=== PATIENT | female | born 1940 | race Caucasian/White ===

== ENCOUNTER 2022-11-08 15:14 | Inpatient (IN) ==
[2022-11-08] MEDS ORDERED: XOPENEX 1.25 MG/3 ML NEBULE NEB ONE (18:17)
[2022-11-08] MEDS ORDERED: LEVAQUIN PREMIX IV 750 MG 750 MG/150 ML BAG IV SCH ×2 (18:19→19:00)
[2022-11-08] MEDS ORDERED: Atrovent NEB TX 0.02% NEB SCH (18:19)
[2022-11-08] MEDS ORDERED: PROVENTIL NEB TX 0.083% 2.5MG/ 3ML NEB SCH (18:19)
[2022-11-08] MEDS: XOPENEX 1.25 MG/3 ML NEBULE NEB SCH (18:20)
[2022-11-08] MEDS ORDERED: CATAPRES TAB 0.2 MG PO ONE (18:27)
[2022-11-08 18:40] VITALS: BMI 24.5
[2022-11-08] MEDS: ROBITUSSIN DM PO SCH ×2 (18:40→20:56)
[2022-11-08 18:58] LABS: BASOPHILS % (AUTO) 0.3 % (0.2-1.0); EOSINOPHILS # (AUTO) 0.1 x10^3/uL (0.0-0.2); EOSINOPHILS % (AUTO) 0.5 % (0.9-2.9); HEMATOCRIT 27.9 % (36.0-47.0); HEMOGLOBIN 9.6 g/dL (12.0-16.0); LYMPHOCYTES # (AUTO) 1.9 X10^3/uL (1.3-2.9); LYMPHOCYTES % (AUTO) 16.4 % (21.0-51.0); MEAN CORPUSCULAR HEMOGLOBIN 30.2 pg (27.0-34.0); MEAN CORPUSCULAR HGB CONC 34.5 g/dL (33.0-35.0); MEAN CORPUSCULAR VOLUME 87.7 fL (80.0-100.0); MEAN PLATELET VOLUME 9.1 fL (7.4-11.0); MONOCYTES # (AUTO) 0.8 x10^3/uL (0.3-0.8); MONOCYTES % (AUTO) 7.3 % (0.0-13.0); NEUTROPHILS # (AUTO) 8.7 x10^3/uL (2.2-4.8); NEUTROPHILS % (AUTO) 75.5 % (42.0-75.0); PLATELET COUNT 328 X10^3/uL (150.0-450.0); RED BLOOD COUNT 3.18 X10^6/uL (3.5-5.4); RED CELL DISTRIBUTION WIDTH 13.5 % (11.6-16.5); WHITE BLOOD COUNT 11.5 X10^3/uL (3.6-10.0)
[2022-11-08] MEDS ORDERED: NS 1/2 1,000 ML IV 1,000 ML IV ONE (19:00)
[2022-11-08 19:10] LABS: ALANINE AMINOTRANSFERASE 43 Units/L (12-78); ALBUMIN 3.9 g/dL (3.4-5.0); ALKALINE PHOSPHATASE 35 Units/L (46-116); ASPARTATE AMINO TRANSFERASE 34 Units/L (15-37); BLOOD UREA NITROGEN 33 mg/dL (7-18); CALCIUM 9.9 mg/dL (8.5-10.1); CARBON DIOXIDE 25.1 mmol/L (21-32); CHLORIDE 105 mmol/L (98-107); COR NA(FOR HYPERGLY) 142 mmol/L (136-145); CREATININE 1.71 mg/dL (0.55-1.02); GLUCOSE 186 mg/dL (65-99); POTASSIUM 3.4 mmol/L (3.5-5.1); SODIUM 140 mmol/L (136-145); TOTAL PROTEIN 7.4 g/dL (6.4-8.2); eGFR NON BLACK RACES 30 (>60)
[2022-11-08] MEDS ORDERED: PULMICORT NEB TX 0.5 MG NEB ONE (19:11)
[2022-11-08] MEDS: NS 1/2 1,000 ML IV 1,000 ML IV SCH (19:23)
[2022-11-08] MEDS: TUSSIONEX PENNKINETIC SUSP PO PRN (19:23)
[2022-11-08] MEDS: PULMICORT NEB TX 0.5 MG NEB SCH (20:10)
[2022-11-08] MEDS ORDERED: MECLIZINE HCL 25 MG PO PRN (20:15)
[2022-11-08] MEDS ORDERED: ONDANSETRON HCL 4 MG PO PRN (20:15)
[2022-11-08] MEDS: NEURONTIN CAP 300 MG PO SCH (20:56)
[2022-11-08] MEDS ORDERED: ANTIVERT TAB 25 MG PO PRN (21:20)
--- NOTE | 2022-11-08 22:39 | RAD ---
HISTORYPneumoniaSTUDYCHEST, PA/LAT ADULTCOMPARISONNone availableTECHNIQUEPA and lateral projections, 2 imagesFINDINGSCardiac silhouette is normal in size and configuration.Pulmonary vascular sizes are normal.Lungs are hyperinflated.No effusion.No focal airspace disease.No pneumothorax.No acute osseous abnormalityIMPRESSION1. No imaging findings of acute cardiopulmonary disease.2. Lungs are hyperinflated; concerning for COPD.Electronically signed by: Derian Dumont (Nov 08, 2022 22:38:03)
[2022-11-09] MEDS: XOPENEX 1.25 MG/3 ML NEBULE NEB SCH ×5 (00:02→17:03)
[2022-11-09 05:11] LABS: HEMOGLOBIN 8.5 g/dL (12.0-16.0); MEAN PLATELET VOLUME 9.1 fL (7.4-11.0)
[2022-11-09 05:15] LABS: BASOPHILS % (AUTO) 0.5 % (0.2-1.0); EOSINOPHILS # (AUTO) 0.2 x10^3/uL (0.0-0.2); EOSINOPHILS % (AUTO) 1.5 % (0.9-2.9); HEMATOCRIT 24.6 % (36.0-47.0); LYMPHOCYTES # (AUTO) 2.2 X10^3/uL (1.3-2.9); LYMPHOCYTES % (AUTO) 20.8 % (21.0-51.0); MEAN CORPUSCULAR HEMOGLOBIN 30.5 pg (27.0-34.0); MEAN CORPUSCULAR HGB CONC 34.5 g/dL (33.0-35.0); MEAN CORPUSCULAR VOLUME 88.3 fL (80.0-100.0); MONOCYTES % (AUTO) 9.3 % (0.0-13.0); NEUTROPHILS # (AUTO) 7.1 x10^3/uL (2.2-4.8); NEUTROPHILS % (AUTO) 67.9 % (42.0-75.0); PLATELET COUNT 301 X10^3/uL (150.0-450.0); RED BLOOD COUNT 2.79 X10^6/uL (3.5-5.4); RED CELL DISTRIBUTION WIDTH 13.6 % (11.6-16.5); WHITE BLOOD COUNT 10.4 X10^3/uL (3.6-10.0)
[2022-11-09 05:25] LABS: ALANINE AMINOTRANSFERASE 35 Units/L (12-78); ALBUMIN 3.2 g/dL (3.4-5.0); ALKALINE PHOSPHATASE 30 Units/L (46-116); ASPARTATE AMINO TRANSFERASE 24 Units/L (15-37); BLOOD UREA NITROGEN 32 mg/dL (7-18); CALCIUM 9.3 mg/dL (8.5-10.1); CARBON DIOXIDE 26.2 mmol/L (21-32); CHLORIDE 107 mmol/L (98-107); COR CA(FOR HYPOALB) 9.9 mg/dL (8.5-10.1); CREATININE 1.66 mg/dL (0.55-1.02); GLUCOSE 96 mg/dL (65-99); MAGNESIUM 1.7 mg/dL (2.0-2.9); POTASSIUM 3.9 mmol/L (3.5-5.1); SODIUM 141 mmol/L (136-145); TOTAL PROTEIN 6.4 g/dL (6.4-8.2); eGFR NON BLACK RACES 31 (>60)
[2022-11-09] MEDS ORDERED: ONDANSETRON HCL 4 MG PO PRN (05:33)
[2022-11-09] MEDS ORDERED: ZOFRAN TAB 4 MG PO PRN (06:08)
[2022-11-09] MEDS: MAGNESIUM SULFATE 1 GRAM/100 mL PREMIX 1 G/100 ML BAG IV PRN ×2 (06:08→08:32)
--- NOTE | 2022-11-09 07:43 | RAD ---
HISTORYPneumonia, shortness of breathSTUDYChest AP [id number]/27/2023FINDINGSHeart is upper limits normal in size. Chantal are normal. Lung khan are clear. No pleural effusions are identified. Bony thorax is unremarkable.IMPRESSIONLungs clearElectronically signed by: GULSHAN NESBITT (Nov 09, 2022 07:41:21)
[2022-11-09] MEDS: PULMICORT NEB TX 0.5 MG NEB SCH ×3 (07:47→20:58)
[2022-11-09] MEDS ORDERED: TOPROL XL PO ONE (08:28)
[2022-11-09] MEDS: FLONASE NASAL SPRAY ENOSTRIL SCH (08:32)
[2022-11-09] MEDS: ROBITUSSIN DM PO SCH ×4 (08:33→21:11)
[2022-11-09] MEDS: SYNTHROID 50 mcg TAB PO SCH (08:33)
[2022-11-09] MEDS: ZESTORETIC 20/25 MG PO SCH (08:33)
[2022-11-09] MEDS: TOPROL XL PO SCH (08:33)
[2022-11-09] MEDS: PriLOSEC PO SCH (08:33)
[2022-11-09] MEDS: ASPIRIN EC 81 MG PO SCH (08:33)
[2022-11-09] MEDS: SINGULAIR TAB 10 MG PO SCH (08:33)
[2022-11-09] MEDS: NORVASC TAB 5 MG PO SCH (08:33)
[2022-11-09] MEDS ORDERED: LEVAQUIN PREMIX IV 750 MG 750 MG/150 ML BAG IV SCH (09:00)
[2022-11-09] MEDS ORDERED: TRICOR TAB 145 MG PO SCH (09:00)
[2022-11-09] MEDS: SOLU-Medrol 40 MG VIAL IVP SCH ×3 (10:44→21:12)
[2022-11-09] MEDS: TUSSIONEX PENNKINETIC SUSP PO PRN (12:05)
[2022-11-09] MEDS: TESSALON PERLES PO PRN (12:05)
[2022-11-09] MEDS: NS 1/2 1,000 ML IV 1,000 ML IV SCH ×2 (12:07→21:19)
[2022-11-09] MEDS ORDERED: NS 1/2 1,000 ML IV 1,000 ML IV ONE ×2 (12:07→19:25)
--- NOTE | 2022-11-09 13:31 | DR.H&P ---
H&P - History & Physical for Day of: H&P Date: 11/08/22 - Chief Complaint Chief Complaint: COUGH, SOB - History of Present Illness History of Present Illness: IS A 82 YEAR OLD PATIENT OF OURS. SHE WAS A DIRECT ADMISSION FOR TREATMENT OF BRONCHOPNEUMONIA. HER SYMPTOMS OF PRODUCTIVE COUGH AND SHORTNESS OF BREATH STARTED ABOUT A WEEK AGO. SHE HAS TAKEN A Z-PACK, TESSALON PERLES, AND PREDNISONE. SHE DENIES IMPROVEMENT IN SYMPTOMS DESPITE COMPLIANCE WITH MEDICATIONS. HER PMH INCLUDES: COPD, GERD, HTN, KIDNEY STONES, ARTHRITIS, HYPERTHYROIDISM, CHOLECYSTECTOMY, HYSTERECTOMY, TONSILLECTOMY. ON ADMISSION, HER VITALS WERE 98.3-71-16-99%-136/65. LABS WERE OBTAINED. WBC 11.5, RBC 3.18, HGB 9.6, HCT 27.9, SODIUM 140, POTASSIUM 3.4, CHLORIDE 105, BUN 33, CREATININE 1.71, GLUCOSE 186, CALCIUM 9.9, AST 34, ALT 43, ALK PHOS 35, TOTAL PROTEIN 7.4, ALBUMIN 3.9. A RESPIRATORY VIRAL PANEL WAS SET UP. BLOOD CULTURES WERE ALSO SET UP. A CHEST XRAY WAS OBTAINED AND REVEALED: 1. No imaging findings of acute cardiopulmonary disease.2. Lungs are hyperinflated; concerning for COPD. SHE WAS STARTED ON 1/2NS AT 75 ML/HR, LEVAQUIN 750MG IV Q48H, PULMICORT NEBS BID, XOPENEX NEBS Q6H, SOLU-MEDROL 80MG IV Q8H, TUSSIONEX 5ML Q12H PRN, ROBITUSSIN DM 10ML QID, AND HER HOME MEDICATIONS WERE RESUMED. HOME MEDS INCLUDE: NORVASC, ECOTRIN, TESSALON PERLES, NEURONTIN, SYNTHROID, ZESTORETIC, ANTIVERT, TOPROL XL, SINGULAIR, PRILOSEC, AND ZOFRAN. OTHERWISE, WE WILL FOLLOW- UP WITH AM LABS AND CHEST XRAY AND CONTINUE TO MONITOR. TIME SPENT ON CLINICAL ASSESSMENT, REVIWING LABS AND IMAGING, DECISION MAKING, AND DOCUMENTATION GREATER THAN 75 MINUTES. - Past Medical History Past Medical History: Arthritis, GERD, Hypertension, Hyperthyroidism, Kidney Stones - Past Surgical History Surgical History: Cholecystectomy, Hysterectomy, Ortho Surgery, Tonsillectomy - Family History Family Medical History: Coronary Artery Disease, Hypertension - Social History Does patient currently use any type of tobacco product: No Have you used tobacco products in the last 12 months: No Type of Tobacco Use: None Alcohol Use: None Drug Use: None - Medications Home Medications: Penicillins Allergy (Unknown, Verified 11/08/22 18:19) CONTINUE taking the following medications azithromycin 250 mg tablet 250 mg PO PER PKG DIR 11/08/22 [History] benzonatate 100 mg capsule 100 mg PO TID PRN Cough 11/08/22 [History] ergocalciferol (vitamin D2) 1,250 mcg (50,000 unit) capsule 1,250 mcg PO QWEEK 11/08/22 [History] fenofibrate nanocrystallized 145 mg tablet 145 mg PO QDAY 11/08/22 [History] fluticasone propionate 50 mcg/actuation nasal spray,suspension 2 spray intranasal QDAY 11/08/22 [History] gabapentin 300 mg capsule 300 mg PO HS 11/08/22 [History] levothyroxine 50 mcg tablet 50 mcg PO QDAY 11/08/22 [History] lisinopril 20 mg-hydrochlorothiazide 25 mg tablet 1 tab PO QDAY 11/08/22 [History] omeprazole 20 mg capsule,delayed release 20 mg PO QDAY 11/08/22 [History] prednisone 5 mg tablet 5 mg PO PER PKG DIR 11/08/22 [History] - Review of Systems Constitutional: Weakness Eyes: No Symptoms Reported ENT: No Symptoms Reported Respiratory: Cough, Shortness of Breath, SOB with Excertion Cardiovascular: No Symptoms Reported Gastrointestinal: No Symptoms Reported Genitourinary: No Symptoms Reported Musculoskeletal: No Symptoms Reported Skin: No Symptoms Reported Neurological: Weakness - Physical Exam Vital Signs: Temperature 98.3 F Pulse Rate 66 Respiratory Rate 15 Blood Pressure [Right Arm] 138/62 Blood Pressure 142/65 O2 Sat by Pulse Oximetry 93 Oriented: Normal Eyes: Normal Ear: Normal Nose: Normal Throat: Normal Respiratory: Diminished Throughout, Wheezes Throughout Cardiovascular: Normal : Normal Auscultation: Bowel Sounds: Normal Palpation: Normal Tenderness: Normal Skin: Normal Musculoskeletal: Normal Psychiatric: Normal Mood Description: Calm Affect: Normal Speech Pattern: Clear - Assessment/Plan (1) Bronchopneumonia Status: Acute Plan: ADMIT, SUPPLEMENTAL OXYGEN, 1/2NS AT 75 ML/HR, LEVAQUIN 750MG IV Q48H, PULMICORT NEBS BID, XOPENEX NEBS Q6H, SOLU-MEDROL 80MG IV Q8H, TUSSIONEX 5ML Q12H PRN, ROBITUSSIN DM 10ML QID, AND HER HOME MEDICATIONS WERE RESUMED. (2) GERD (gastroesophageal reflux disease) Qualifiers: Esophagitis presence: esophagitis presence not specified Qualified Code(s): K21.9 - Gastro-esophageal reflux disease without esophagitis Status: Chronic (3) Hypertension Qualifiers: Hypertension type: primary hypertension Qualified Code(s): I10 - Essential (primary) hypertension Status: Chronic - Allergies Allergies/Adverse Reactions: Allergies Allergy/AdvReac Type Severity Reaction Status Date / Time Penicillins Allergy Unknown Verified 11/08/22 18:19
[2022-11-09] MEDS: NEURONTIN CAP 300 MG PO SCH (21:11)
[2022-11-10] MEDS: XOPENEX 1.25 MG/3 ML NEBULE NEB SCH ×4 (00:36→17:04)
[2022-11-10] MEDS: SOLU-Medrol 40 MG VIAL IVP SCH ×3 (05:08→21:04)
[2022-11-10 05:24] LABS: BASOPHILS # (AUTO) 0.1 X10^3/uL (0.0-0.1); BASOPHILS % (AUTO) 0.9 % (0.2-1.0); HEMATOCRIT 28.1 % (36.0-47.0); HEMOGLOBIN 9.6 g/dL (12.0-16.0); LYMPHOCYTES # (AUTO) 1.1 X10^3/uL (1.3-2.9); LYMPHOCYTES % (AUTO) 7.1 % (21.0-51.0); MEAN CORPUSCULAR HEMOGLOBIN 29.9 pg (27.0-34.0); MEAN CORPUSCULAR VOLUME 87.8 fL (80.0-100.0); MEAN PLATELET VOLUME 9.6 fL (7.4-11.0); MONOCYTES # (AUTO) 0.3 x10^3/uL (0.3-0.8); MONOCYTES % (AUTO) 1.8 % (0.0-13.0); NEUTROPHILS # (AUTO) 13.7 x10^3/uL (2.2-4.8); NEUTROPHILS % (AUTO) 90.2 % (42.0-75.0); PLATELET COUNT 408 X10^3/uL (150.0-450.0); RED CELL DISTRIBUTION WIDTH 13.6 % (11.6-16.5); WHITE BLOOD COUNT 15.2 X10^3/uL (3.6-10.0)
[2022-11-10 05:33] LABS: ALANINE AMINOTRANSFERASE 34 Units/L (12-78); ALBUMIN 3.5 g/dL (3.4-5.0); ALKALINE PHOSPHATASE 35 Units/L (46-116); ASPARTATE AMINO TRANSFERASE 19 Units/L (15-37); BLOOD UREA NITROGEN 35 mg/dL (7-18); CALCIUM 9.3 mg/dL (8.5-10.1); CARBON DIOXIDE 22.8 mmol/L (21-32); CHLORIDE 104 mmol/L (98-107); COR NA(FOR HYPERGLY) 141 mmol/L (136-145); CREATININE 1.92 mg/dL (0.55-1.02); GLUCOSE 195 mg/dL (65-99); MAGNESIUM 2.2 mg/dL (2.0-2.9); POTASSIUM 3.6 mmol/L (3.5-5.1); SODIUM 139 mmol/L (136-145); TOTAL PROTEIN 7.1 g/dL (6.4-8.2); eGFR NON BLACK RACES 27 (>60)
[2022-11-10 05:45] LABS: PLATELET MORPHOLOGY COMMENT NORMAL (NORMAL)
--- NOTE | 2022-11-10 06:04 | RAD ---
HISTORYSOBSTUDYCHEST, 1 VIEWCOMPARISONApril 2022TECHNIQUEPortable chest x-rayFINDINGSHeart size and mediastinal contours are normal. Lungs are clear as are the pleural spaces. No free air or pneumothorax. No acute bony abonormality.IMPRESSIONNo acute radiographic abnormalities of the chestElectronically signed by: CHRIS HAMLIN (Nov 10, 2022 06:02:53)
[2022-11-10] MEDS ORDERED: TOPROL XL PO ONE (08:04)
[2022-11-10] MEDS: PriLOSEC PO SCH (08:13)
[2022-11-10] MEDS: ROBITUSSIN DM PO SCH ×4 (08:13→21:04)
[2022-11-10] MEDS: ZESTORETIC 20/25 MG PO SCH (08:13)
[2022-11-10] MEDS: SINGULAIR TAB 10 MG PO SCH (08:13)
[2022-11-10] MEDS: TOPROL XL PO SCH (08:13)
[2022-11-10] MEDS: ASPIRIN EC 81 MG PO SCH (08:13)
[2022-11-10] MEDS: FLONASE NASAL SPRAY ENOSTRIL SCH (08:14)
[2022-11-10] MEDS: NORVASC TAB 5 MG PO SCH (08:14)
[2022-11-10] MEDS: SYNTHROID 50 mcg TAB PO SCH (08:15)
[2022-11-10] MEDS: LEVAQUIN PREMIX IV 750 MG 750 MG/150 ML BAG IV SCH (08:16)
[2022-11-10] MEDS: PULMICORT NEB TX 0.5 MG NEB SCH ×2 (08:22→20:22)
[2022-11-10] MEDS: TUSSIONEX PENNKINETIC SUSP PO PRN (08:24)
[2022-11-10] MEDS: TESSALON PERLES PO PRN (08:24)
[2022-11-10] MEDS ORDERED: NS 1/2 1,000 ML IV 1,000 ML IV ONE (19:05)
--- NOTE | 2022-11-10 19:32 | PCM.PROG ---
Progress Note Progress Note for Day of Date of Exam: 11/10/22 Subjective Subjective: Patient seen at bedside, no acute events overnight. She is feeling better. She is admitted for bronchopneumonia. She is currently on room air with sats > 92%. She still has some cough. She has been ambulating to the bathroom. She reports eating ok. Labs/imaging reviewed CXR: stable, no new changes Labs: Cr: 1.92 BUN 35 Hgb 9.6 WBC 15.2 Plan: Continue IV levaquin and solumedrol. Monitor O2 sats. O2 prn. Continue nebs, pulmicort and anti-tussives. Continue hydration. Monitor renal function. Ambulate as tolerated. Monitor AM labs and imaging. Past Medical Family Social History Allergies: Allergies Penicillins Allergy (Unknown, Verified 11/08/22 18:19) Vital Signs and I&O's Vital Signs: Temperature 97.8 F Pulse Rate 82 Respiratory Rate 38 Blood Pressure [Right Arm] 138/62 Blood Pressure 156/68 O2 Sat by Pulse Oximetry 98 Intake and Output: Intake & Output 11/07/22 11/08/22 11/09/22 11/10/22 23:59 23:59 23:59 23:59 Intake Total 535 / 535 3125 / 3125 2410 / 2410 Output Total 300 / 300 350 / 350 800 / 800 Balance 235 / 235 2775 / 2775 1610 / 1610 Physical Exam Oriented: Normal Eyes: Normal Ear: Normal Nose: Normal Throat: Normal Respiratory: Generalized, Diminished and Wheezes Cardiovascular: Normal Auscultation: Bowel Sounds: Normal Tenderness: Normal Skin: Normal Musculoskeletal: Normal Psychiatric: Normal Mood Description: Calm Affect: Normal Speech Pattern: Clear and Appropriate Laboratory and Diagnostics Result Diagrams: 11/10/22 04:25 11/10/22 04:25 Labs: 11/08/22 18:45 Blood Blood Culture - Preliminary 11/08/22 18:30 Blood Blood Culture - Preliminary Laboratory WBC 15.2 X10^3/uL (3.6-10.0) H 11/10/22 04:25 RBC 3.20 X10^6/uL (3.5-5.4) L 11/10/22 04:25 Hgb 9.6 g/dL (12.0-16.0) L 11/10/22 04:25 Hct 28.1 % (36.0-47.0) L 11/10/22 04:25 MCV 87.8 fL (80.0-100.0) 11/10/22 04:25 MCH 29.9 pg (27.0-34.0) 11/10/22 04:25 MCHC 34.0 g/dL (33.0-35.0) 11/10/22 04:25 RDW 13.6 % (11.6-16.5) 11/10/22 04:25 Plt Count 408 X10^3/uL (150.0-450.0) 11/10/22 04:25 Plt Count Comment Adequate (ADEQUATE) 11/10/22 04:25 MPV 9.6 fL (7.4-11.0) 11/10/22 04:25 Neut % (Auto) 90.2 % (42.0-75.0) H 11/10/22 04:25 Lymph % (Auto) 7.1 % (21.0-51.0) L 11/10/22 04:25 [place] % (Auto) 1.8 % (0.0-13.0) 11/10/22 04:25 Eos % (Auto) 0.0 % (0.9-2.9) L 11/10/22 04:25 Baso % (Auto) 0.9 % (0.2-1.0) 11/10/22 04:25 Neut # (Auto) 13.7 x10^3/uL (2.2-4.8) H 11/10/22 04:25 Lymph # (Auto) 1.1 X10^3/uL (1.3-2.9) L 11/10/22 04:25 [place] # (Auto) 0.3 x10^3/uL (0.3-0.8) 11/10/22 04:25 Eos # (Auto) 0.0 x10^3/uL (0.0-0.2) 11/10/22 04:25 Baso # (Auto) 0.1 X10^3/uL (0.0-0.1) 11/10/22 04:25 Absolute Nucleated RBC 0.0 /100WBC 11/10/22 04:25 Total Counted 100 11/10/22 04:25 Neutrophils % (Manual) 89 % (39-76) H 11/10/22 04:25 Lymphocytes % (Manual) 9 % (13-43) L 11/10/22 04:25 Monocytes % (Manual) 2 % (4-9) L 11/10/22 04:25 Plt Morphology Comment Normal (NORMAL) 11/10/22 04:25 RBC Morphology Normal (NORMAL) 11/10/22 04:25 Sodium 139 mmol/L (136-145) 11/10/22 04:25 Corrected Sodium 141 mmol/L (136-145) 11/10/22 04:25 Potassium 3.6 mmol/L (3.5-5.1) 11/10/22 04:25 Chloride 104 mmol/L (98-107) 11/10/22 04:25 Carbon Dioxide 22.8 mmol/L (21-32) 11/10/22 04:25 BUN 35 mg/dL (7-18) H 11/10/22 04:25 Creatinine 1.92 mg/dL (0.55-1.02) H 11/10/22 04:25 Est GFR (MDRD) Af Amer 32 (>60) L 11/10/22 04:25 Est GFR (MDRD) Non-Af 27 (>60) L 11/10/22 04:25 Glucose 195 mg/dL (65-99) H 11/10/22 04:25 Calcium 9.3 mg/dL (8.5-10.1) 11/10/22 04:25 Corrected Calcium TNP 11/10/22 04:25 Magnesium 2.2 mg/dL (2.0-2.9) 11/10/22 04:25 Total Bilirubin 0.30 mg/dL (0.2-1.0) 11/10/22 04:25 AST 19 Units/L (15-37) 11/10/22 04:25 ALT 34 Units/L (12-78) 11/10/22 04:25 Alkaline Phosphatase 35 Units/L (46-116) L 11/10/22 04:25 Total Protein 7.1 g/dL (6.4-8.2) 11/10/22 04:25 Albumin 3.5 g/dL (3.4-5.0) 11/10/22 04:25 Globulin 3.6 g/dL (2.5-4.5) 11/10/22 04:25 Albumin/Globulin Ratio 1.0 Ratio (1.1-2.1) L 11/10/22 04:25 Plan (1) Bronchopneumonia: Status: Acute (2) CHIKIS (acute kidney injury): Status: Acute (3) Dehydration: Status: Acute (4) Anemia: Status: Acute (5) GERD (gastroesophageal reflux disease): Status: Chronic Qualifiers: Esophagitis presence: esophagitis presence not specified Qualified Code(s): K21.9 - Gastro-esophageal reflux disease without esophagitis (6) Hypertension: Status: Chronic Qualifiers: Hypertension type: primary hypertension Qualified Code(s): I10 - Essential (primary) hypertension
[2022-11-10] MEDS ORDERED: COLACE CAP 100 MG PO PRN (20:16)
[2022-11-10] MEDS: NEURONTIN CAP 300 MG PO SCH (21:04)
[2022-11-10] MEDS: NS 1/2 1,000 ML IV 1,000 ML IV SCH (21:09)
[2022-11-11] MEDS: XOPENEX 1.25 MG/3 ML NEBULE NEB SCH ×4 (00:07→17:41)
[2022-11-11] MEDS: NS 1/2 1,000 ML IV 1,000 ML IV SCH (01:59)
[2022-11-11] MEDS: SOLU-Medrol 40 MG VIAL IVP SCH ×2 (05:11→20:37)
[2022-11-11 05:16] LABS: BASOPHILS % (AUTO) 0.1 % (0.2-1.0); HEMOGLOBIN 8.1 g/dL (12.0-16.0); LYMPHOCYTES # (AUTO) 0.9 X10^3/uL (1.3-2.9); MEAN CORPUSCULAR HEMOGLOBIN 29.4 pg (27.0-34.0); MEAN CORPUSCULAR HGB CONC 33.7 g/dL (33.0-35.0); MEAN CORPUSCULAR VOLUME 87.2 fL (80.0-100.0); MEAN PLATELET VOLUME 9.4 fL (7.4-11.0); MONOCYTES # (AUTO) 0.5 x10^3/uL (0.3-0.8); NEUTROPHILS # (AUTO) 16.7 x10^3/uL (2.2-4.8); NEUTROPHILS % (AUTO) 91.9 % (42.0-75.0); PLATELET COUNT 372 X10^3/uL (150.0-450.0); RED BLOOD COUNT 2.76 X10^6/uL (3.5-5.4); RED CELL DISTRIBUTION WIDTH 13.4 % (11.6-16.5); WHITE BLOOD COUNT 18.2 X10^3/uL (3.6-10.0)
[2022-11-11 05:25] LABS: CALCIUM 8.6 mg/dL (8.5-10.1); CARBON DIOXIDE 23.2 mmol/L (21-32); COR CA(FOR HYPOALB) 9.4 mg/dL (8.5-10.1); CREATININE 1.85 mg/dL (0.55-1.02); POTASSIUM 3.8 mmol/L (3.5-5.1)
[2022-11-11 05:32] LABS: PLATELET MORPHOLOGY COMMENT NORMAL (NORMAL)
--- NOTE | 2022-11-11 06:07 | RAD ---
HISTORYSOBSTUDYCHEST, 1 VIEWCOMPARISONApril 2022TECHNIQUEPortable chest radiographFINDINGSNo developing pulmonary infiltrate. Costophrenic sulci are not fully imaged. There is questionable marginal blunting of the left costophrenic sulcus, slight change. No free air or pneumothorax.IMPRESSIONNo organized pulmonary infiltratesMarginal blunting of the left costophrenic sulcus is questioned-trace effusion is considered.Electronically signed by: CHRIS HAMLIN (Nov 11, 2022 06:06:04)
[2022-11-11] MEDS ORDERED: TOPROL XL PO ONE (08:06)
[2022-11-11] MEDS ORDERED: NS 1/2 1,000 ML IV 1,000 ML IV ONE (08:10)
[2022-11-11] MEDS: ROBITUSSIN DM PO SCH ×4 (08:11→20:36)
[2022-11-11] MEDS: PriLOSEC PO SCH (08:11)
[2022-11-11] MEDS: TUSSIONEX PENNKINETIC SUSP PO PRN (08:11)
[2022-11-11] MEDS: TESSALON PERLES PO PRN (08:11)
[2022-11-11] MEDS: SINGULAIR TAB 10 MG PO SCH (08:11)
[2022-11-11] MEDS: ASPIRIN EC 81 MG PO SCH (08:11)
[2022-11-11] MEDS: TOPROL XL PO SCH (08:12)
[2022-11-11] MEDS: SYNTHROID 50 mcg TAB PO SCH (08:12)
[2022-11-11] MEDS: FLONASE NASAL SPRAY ENOSTRIL SCH (08:12)
[2022-11-11] MEDS: NORVASC TAB 5 MG PO SCH (08:12)
[2022-11-11] MEDS: ZESTORETIC 20/25 MG PO SCH (08:12)
[2022-11-11] MEDS: PULMICORT NEB TX 0.5 MG NEB SCH (08:15)
[2022-11-11] MEDS: NS 1,000 ML IV 1,000 ML IV SCH ×2 (11:00→20:35)
--- NOTE | 2022-11-11 11:31 | PCM.PROG ---
Progress Note Progress Note for Day of Date of Exam: 11/11/22 Subjective Subjective: Patient seen at bedside, no acute events overnight. She is feeling better. She is admitted for bronchopneumonia. She is currently on room air with sats > 92%. She still has some cough. She has been ambulating to the bathroom. Her respiratory panel showed H. Influenza, Strep and parainfluenza. Blood Cx are negative. Labs/imaging reviewed CXR: stable, no new changes Labs: Cr: 1.85 BUN 38 Hgb 8.1 WBC 18.2 Plan: Continue IV levaquin and decrease solumedrol. Monitor O2 sats. O2 prn. Continue nebs, pulmicort and anti-tussives. Continue hydration, change to NS @ 75cc/hr. Monitor renal function. Ambulate as tolerated. Monitor AM labs and imaging. Past Medical Family Social History Allergies: Allergies Penicillins Allergy (Unknown, Verified 11/08/22 18:19) Vital Signs and I&O's Vital Signs: Temperature 98.0 F Pulse Rate 68 Respiratory Rate 13 Blood Pressure [Right Arm] 138/62 Blood Pressure 158/69 O2 Sat by Pulse Oximetry 97 Intake and Output: Intake & Output 11/08/22 11/09/22 11/10/22 11/11/22 23:59 23:59 23:59 23:59 Intake Total 535 / 535 3125 / 3125 3640 / 3640 700 / 700 Output Total 300 / 300 350 / 350 800 / 800 Balance 235 / 235 2775 / 2775 2840 / 2840 700 / 700 Physical Exam Oriented: Normal Eyes: Normal Ear: Normal Nose: Normal Throat: Normal Respiratory: Generalized and Diminished Cardiovascular: Normal Auscultation: Bowel Sounds: Normal Tenderness: Normal Skin: Normal Musculoskeletal: Normal Psychiatric: Normal Mood Description: Calm Affect: Normal Speech Pattern: Clear and Appropriate Laboratory and Diagnostics Result Diagrams: 11/11/22 04:15 11/11/22 04:15 Labs: 11/08/22 18:45 Blood Blood Culture - Preliminary 11/08/22 18:30 Blood Blood Culture - Preliminary Laboratory WBC 18.2 X10^3/uL (3.6-10.0) H 11/11/22 04:15 RBC 2.76 X10^6/uL (3.5-5.4) L 11/11/22 04:15 Hgb 8.1 g/dL (12.0-16.0) L 11/11/22 04:15 Hct 24.0 % (36.0-47.0) L 11/11/22 04:15 MCV 87.2 fL (80.0-100.0) 11/11/22 04:15 MCH 29.4 pg (27.0-34.0) 11/11/22 04:15 MCHC 33.7 g/dL (33.0-35.0) 11/11/22 04:15 RDW 13.4 % (11.6-16.5) 11/11/22 04:15 Plt Count 372 X10^3/uL (150.0-450.0) 11/11/22 04:15 Plt Count Comment Adequate (ADEQUATE) 11/11/22 04:15 MPV 9.4 fL (7.4-11.0) 11/11/22 04:15 Neut % (Auto) 91.9 % (42.0-75.0) H 11/11/22 04:15 Lymph % (Auto) 5.0 % (21.0-51.0) L 11/11/22 04:15 [place] % (Auto) 3.0 % (0.0-13.0) 11/11/22 04:15 Eos % (Auto) 0.0 % (0.9-2.9) L 11/11/22 04:15 Baso % (Auto) 0.1 % (0.2-1.0) L 11/11/22 04:15 Neut # (Auto) 16.7 x10^3/uL (2.2-4.8) H 11/11/22 04:15 Lymph # (Auto) 0.9 X10^3/uL (1.3-2.9) L 11/11/22 04:15 [place] # (Auto) 0.5 x10^3/uL (0.3-0.8) 11/11/22 04:15 Eos # (Auto) 0.0 x10^3/uL (0.0-0.2) 11/11/22 04:15 Baso # (Auto) 0.0 X10^3/uL (0.0-0.1) 11/11/22 04:15 Absolute Nucleated RBC 0.0 /100WBC 11/11/22 04:15 Total Counted 100 11/11/22 04:15 Neutrophils % (Manual) 94 % (39-76) H 11/11/22 04:15 Lymphocytes % (Manual) 3 % (13-43) L 11/11/22 04:15 Monocytes % (Manual) 3 % (4-9) L 11/11/22 04:15 Plt Morphology Comment Normal (NORMAL) 11/11/22 04:15 RBC Morphology Normal (NORMAL) 11/11/22 04:15 Sodium 138 mmol/L (136-145) 11/11/22 04:15 Corrected Sodium 140 mmol/L (136-145) 11/11/22 04:15 Potassium 3.8 mmol/L (3.5-5.1) 11/11/22 04:15 Chloride 104 mmol/L (98-107) 11/11/22 04:15 Carbon Dioxide 23.2 mmol/L (21-32) 11/11/22 04:15 BUN 38 mg/dL (7-18) H 11/11/22 04:15 Creatinine 1.85 mg/dL (0.55-1.02) H 11/11/22 04:15 Est GFR (MDRD) Af Amer 33 (>60) L 11/11/22 04:15 Est GFR (MDRD) Non-Af 28 (>60) L 11/11/22 04:15 Glucose 197 mg/dL (65-99) H 11/11/22 04:15 Calcium 8.6 mg/dL (8.5-10.1) 11/11/22 04:15 Corrected Calcium 9.4 mg/dL (8.5-10.1) 11/11/22 04:15 Magnesium 2.2 mg/dL (2.0-2.9) 11/10/22 04:25 Total Bilirubin 0.20 mg/dL (0.2-1.0) 11/11/22 04:15 AST 19 Units/L (15-37) 11/11/22 04:15 ALT 31 Units/L (12-78) 11/11/22 04:15 Alkaline Phosphatase 30 Units/L (46-116) L 11/11/22 04:15 Total Protein 6.0 g/dL (6.4-8.2) L 11/11/22 04:15 Albumin 3.0 g/dL (3.4-5.0) L 11/11/22 04:15 Globulin 3.0 g/dL (2.5-4.5) 11/11/22 04:15 Albumin/Globulin Ratio 1.0 Ratio (1.1-2.1) L 11/11/22 04:15 Resp Viral Panel (PCR) See scanned report 11/08/22 18:24 Plan (1) Bronchopneumonia: Status: Acute Plan: (2) CHIKIS (acute kidney injury): Status: Acute (3) Dehydration: Status: Acute (4) Anemia: Status: Acute (5) GERD (gastroesophageal reflux disease): Status: Chronic Qualifiers: Esophagitis presence: esophagitis presence not specified Qualified Code(s): K21.9 - Gastro-esophageal reflux disease without esophagitis (6) Hypertension: Status: Chronic Qualifiers: Hypertension type: primary hypertension Qualified Code(s): I10 - Essential (primary) hypertension
[2022-11-11] MEDS ORDERED: SOLU-Medrol 40 MG VIAL ONE (19:11)
[2022-11-11] MEDS: NEURONTIN CAP 300 MG PO SCH (20:35)
[2022-11-12] MEDS: NS 1,000 ML IV 1,000 ML IV SCH ×3 (02:03→16:30)
[2022-11-12 04:55] LABS: BASOPHILS % (AUTO) 0.2 % (0.2-1.0); HEMOGLOBIN 8.4 g/dL (12.0-16.0); LYMPHOCYTES % (AUTO) 6.4 % (21.0-51.0); MEAN CORPUSCULAR HEMOGLOBIN 29.3 pg (27.0-34.0); MEAN CORPUSCULAR HGB CONC 33.6 g/dL (33.0-35.0); MEAN CORPUSCULAR VOLUME 87.3 fL (80.0-100.0); MEAN PLATELET VOLUME 9.3 fL (7.4-11.0); MONOCYTES # (AUTO) 0.7 x10^3/uL (0.3-0.8); MONOCYTES % (AUTO) 4.2 % (0.0-13.0); NEUTROPHILS # (AUTO) 13.8 x10^3/uL (2.2-4.8); NEUTROPHILS % (AUTO) 89.2 % (42.0-75.0); PLATELET COUNT 378 X10^3/uL (150.0-450.0); RED BLOOD COUNT 2.87 X10^6/uL (3.5-5.4); RED CELL DISTRIBUTION WIDTH 13.6 % (11.6-16.5); WHITE BLOOD COUNT 15.5 X10^3/uL (3.6-10.0)
[2022-11-12 05:16] LABS: ALBUMIN 2.9 g/dL (3.4-5.0); CALCIUM 8.9 mg/dL (8.5-10.1); CARBON DIOXIDE 24.5 mmol/L (21-32); COR CA(FOR HYPOALB) 9.8 mg/dL (8.5-10.1); CREATININE 1.76 mg/dL (0.55-1.02); TOTAL PROTEIN 5.9 g/dL (6.4-8.2)
--- NOTE | 2022-11-12 05:59 | RAD ---
PROCEDURE: Chest X-ray 1 View .HISTORY: Dyspnea.TECHNIQUE: AP view .COMPARISON: 11/11/2022.TECHNICAL QUALITY: Satisfactory .FINDINGS:Normal size heart .Mediastinum and hilar regions show no masses or lymphadenopathy .Normal central vascularity .No pulmonary consolidation, masses, pleural fluid, or pneumothorax .No acute bony abnormality .IMPRESSION:No active cardiopulmonary disease .Electronically signed by: Gigi Herring (November 12, 2022 05:58:03)
[2022-11-12] MEDS: XOPENEX 1.25 MG/3 ML NEBULE NEB SCH ×3 (06:00→17:55)
[2022-11-12] MEDS: PULMICORT NEB TX 0.5 MG NEB SCH ×2 (08:31→20:31)
[2022-11-12] MEDS ORDERED: TOPROL XL PO ONE (08:48)
[2022-11-12] MEDS: SOLU-Medrol 40 MG VIAL IVP SCH ×2 (08:53→20:28)
[2022-11-12] MEDS: NORVASC TAB 5 MG PO SCH (08:54)
[2022-11-12] MEDS: SYNTHROID 50 mcg TAB PO SCH (08:54)
[2022-11-12] MEDS: ROBITUSSIN DM PO SCH ×4 (08:55→20:28)
[2022-11-12] MEDS: ZESTORETIC 20/25 MG PO SCH (08:55)
[2022-11-12] MEDS: PriLOSEC PO SCH (08:55)
[2022-11-12] MEDS: ASPIRIN EC 81 MG PO SCH (08:56)
[2022-11-12] MEDS: SINGULAIR TAB 10 MG PO SCH (08:56)
[2022-11-12] MEDS: TOPROL XL PO SCH (08:57)
[2022-11-12] MEDS: FLONASE NASAL SPRAY ENOSTRIL SCH (08:57)
[2022-11-12] MEDS: LEVAQUIN PREMIX IV 750 MG 750 MG/150 ML BAG IV SCH (09:03)
--- NOTE | 2022-11-12 13:18 | PCM.PROG ---
Progress Note - Progress Note for Day of Date of Exam: 11/12/22 - Subjective Subjective: IS CURRENTLY INPATIENT STATUS FOR TREATMENT OF BRONCHOPNEUMONIA (FAILUED OUTPATIENT [place]), ACUTE KIDNEY INJURY, ANEMIA, COPD, GERD, AND HTN. TODAY, SHE IS ALERT AND ORIENTED, LYING IN BED ON MORNING ROUNDS. SHE CONTINUES TO COMPLAIN OF COUGH AND OCCASIONAL SHORTNESS OF BREATH. SHE DOES ADMIT TO SLIGHT IMPROVEMENT IN SYMPTOMS SINCE ADMISSION. ON EXAMINATION, HEART IS REGULAR IN RATE AND RHYTHM. BILATERAL LUNGS ARE NOTED WITH DIMINISHED LUNG SOUNDS THROUGHOUT. ABDOMEN IS ROUND, SOFT, AND NON-TENDER WITH NORMAL BOWEL SOUNDS NOTED IN ALL QUADRANTS. NO UPPER OR LOWER EXTREMITY EDEMA NOTED. HER VITALS THIS MORNING ARE: 97.8-72-22-99%-174/81. LABS WERE OBTAINED. WBC 15.5, RBC 2.87, HGB 8.4, HCT 25.0, PLT COUNT 378, SODIUM 140, POTASSIUM 4.0, CHLORIDE 108, BUN 38, CREATININE 1.76, GLUCOSE 185, CALCIUM 8.9, AST 22, ALT 36, ALK PHOS 29, TOTAL PROTEIN 5.9, ALBUMIN 2.9. RESPIRATORY VIRAL PANEL IS POSITIVE FOR HAEMOPHILIUS INFLUENZAE, STREPTOCOCCUS PNEUMONIAE, AND PARAINFLUENZA VIRUS. BLOOD CULTURES ARE PENDING. SHE IS CURRENTLY RECEIVING NS AT 75 ML/HR, LEVAQUIN 750MG IV Q48H, PULMICORT NEBS BID, XOPENEX NEBS Q6H, SOLU-MEDROL 40MG IV Q12H, TUSSIONEX 5ML Q12H PRN, ROBITUSSIN DM 10ML QID, AND HER HOME MEDICATIONS WERE RESUMED. HOME MEDS INCLUDE: NORVASC, ECOTRIN, TESSALON PERLES, NEURONTIN, SYNTHROID, ZESTORETIC, ANTIVERT, TOPROL XL, SINGULAIR, PRILOSEC, AND ZOFRAN. WE WILL CONTINUE WITH CURRENT PLAN OF CARE TODAY. OTHERWISE, WE WILL FOLLOW-UP WITH AM LABS AND CONTINUE TO MONITOR. TIME SPENT ON CLINICAL ASSESSMENT, REVIWING LABS AND IMAGING, DECISION MAKING, AND DOCUMENTATION GREATER THAN 45 MINUTES. - Past Medical Family Social History Past Med/Fam/Surg Hx: No changes since H&P Allergies: Allergies Penicillins Allergy (Unknown, Verified 11/08/22 18:19) - Review of Systems ROS: No change since H&P - Vital Signs and I&O's Vital Signs: Temperature 98.0 F Pulse Rate 68 Respiratory Rate 20 Blood Pressure [Right Arm] 138/62 Blood Pressure 167/77 O2 Sat by Pulse Oximetry 97 Intake and Output: Intake & Output 11/10/22 11/11/22 11/12/22 11/13/22 11:59 11:59 11:59 11:59 Intake Total 3160 / 3160 3580 / 3580 3831 / 3831 Output Total 800 / 800 Balance 2360 / 2360 3580 / 3580 3831 / 3831 - Physical Exam Oriented: Normal Eyes: Normal Ear: Normal Nose: Normal Throat: Normal Respiratory: Generalized, Diminished Cardiovascular: Normal : Normal Auscultation: Bowel Sounds: Normal Palpation: Normal Tenderness: Normal Skin: Normal Musculoskeletal: Normal Psychiatric: Normal Mood Description: Calm Affect: Normal Speech Pattern: Clear, Appropriate - Laboratory and Diagnostics Result Diagrams: 11/12/22 04:05 11/12/22 04:05 Labs: 11/08/22 18:45 Blood Blood Culture - Preliminary 11/08/22 18:30 Blood Blood Culture - Preliminary Laboratory WBC 15.5 X10^3/uL (3.6-10.0) H 11/12/22 04:05 RBC 2.87 X10^6/uL (3.5-5.4) L 11/12/22 04:05 Hgb 8.4 g/dL (12.0-16.0) L 11/12/22 04:05 Hct 25.0 % (36.0-47.0) L 11/12/22 04:05 MCV 87.3 fL (80.0-100.0) 11/12/22 04:05 MCH 29.3 pg (27.0-34.0) 11/12/22 04:05 MCHC 33.6 g/dL (33.0-35.0) 11/12/22 04:05 RDW 13.6 % (11.6-16.5) 11/12/22 04:05 Plt Count 378 X10^3/uL (150.0-450.0) 11/12/22 04:05 Plt Count Comment Adequate (ADEQUATE) 11/11/22 04:15 MPV 9.3 fL (7.4-11.0) 11/12/22 04:05 Neut % (Auto) 89.2 % (42.0-75.0) H 11/12/22 04:05 Lymph % (Auto) 6.4 % (21.0-51.0) L 11/12/22 04:05 [place] % (Auto) 4.2 % (0.0-13.0) 11/12/22 04:05 Eos % (Auto) 0.0 % (0.9-2.9) L 11/12/22 04:05 Baso % (Auto) 0.2 % (0.2-1.0) 11/12/22 04:05 Neut # (Auto) 13.8 x10^3/uL (2.2-4.8) H 11/12/22 04:05 Lymph # (Auto) 1.0 X10^3/uL (1.3-2.9) L 11/12/22 04:05 [place] # (Auto) 0.7 x10^3/uL (0.3-0.8) 11/12/22 04:05 Eos # (Auto) 0.0 x10^3/uL (0.0-0.2) 11/12/22 04:05 Baso # (Auto) 0.0 X10^3/uL (0.0-0.1) 11/12/22 04:05 Absolute Nucleated RBC 0.0 /100WBC 11/12/22 04:05 Total Counted 100 11/11/22 04:15 Neutrophils % (Manual) 94 % (39-76) H 11/11/22 04:15 Lymphocytes % (Manual) 3 % (13-43) L 11/11/22 04:15 Monocytes % (Manual) 3 % (4-9) L 11/11/22 04:15 Plt Morphology Comment Normal (NORMAL) 11/11/22 04:15 RBC Morphology Normal (NORMAL) 11/11/22 04:15 Sodium 140 mmol/L (136-145) 11/12/22 04:05 Corrected Sodium 142 mmol/L (136-145) 11/12/22 04:05 Potassium 4.0 mmol/L (3.5-5.1) 11/12/22 04:05 Chloride 108 mmol/L (98-107) H 11/12/22 04:05 Carbon Dioxide 24.5 mmol/L (21-32) 11/12/22 04:05 BUN 38 mg/dL (7-18) H 11/12/22 04:05 Creatinine 1.76 mg/dL (0.55-1.02) H 11/12/22 04:05 Est GFR (MDRD) Af Amer 35 (>60) L 11/12/22 04:05 Est GFR (MDRD) Non-Af 29 (>60) L 11/12/22 04:05 Glucose 185 mg/dL (65-99) H 11/12/22 04:05 Calcium 8.9 mg/dL (8.5-10.1) 11/12/22 04:05 Corrected Calcium 9.8 mg/dL (8.5-10.1) 11/12/22 04:05 Magnesium 2.2 mg/dL (2.0-2.9) 11/10/22 04:25 Total Bilirubin 0.20 mg/dL (0.2-1.0) 11/12/22 04:05 AST 22 Units/L (15-37) 11/12/22 04:05 ALT 36 Units/L (12-78) 11/12/22 04:05 Alkaline Phosphatase 29 Units/L (46-116) L 11/12/22 04:05 Total Protein 5.9 g/dL (6.4-8.2) L 11/12/22 04:05 Albumin 2.9 g/dL (3.4-5.0) L 11/12/22 04:05 Globulin 3.0 g/dL (2.5-4.5) 11/12/22 04:05 Albumin/Globulin Ratio 1.0 Ratio (1.1-2.1) L 11/12/22 04:05 Resp Viral Panel (PCR) See scanned report 11/08/22 18:24 - Plan (1) Bronchopneumonia Status: Acute Plan: NS AT 75 ML/HR, LEVAQUIN 750MG IV Q48H, PULMICORT NEBS BID, XOPENEX NEBS Q6H, SOLU-MEDROL 40MG IV Q12H, TUSSIONEX 5ML Q12H PRN, ROBITUSSIN DM 10ML QID, AND HER HOME MEDICATIONS WERE RESUMED. (2) CHIKIS (acute kidney injury) Status: Acute (3) Anemia Status: Acute Qualifiers: Anemia type: unspecified type Qualified Code(s): D64.9 - Anemia, unspecified (4) GERD (gastroesophageal reflux disease) Status: Chronic Qualifiers: Esophagitis presence: esophagitis presence not specified Qualified Code(s): K21.9 - Gastro-esophageal reflux disease without esophagitis (5) Hypertension Status: Chronic Qualifiers: Hypertension type: primary hypertension Qualified Code(s): I10 - Essential (primary) hypertension
[2022-11-12] MEDS: NEURONTIN CAP 300 MG PO SCH (20:28)
[2022-11-13] MEDS: XOPENEX 1.25 MG/3 ML NEBULE NEB SCH ×2 (00:01→06:05)
[2022-11-13] MEDS: NS 1,000 ML IV 1,000 ML IV SCH ×2 (01:40→05:10)
[2022-11-13 05:15] LABS: BASOPHILS % (AUTO) 0.2 % (0.2-1.0); EOSINOPHILS % (AUTO) 0.1 % (0.9-2.9); HEMATOCRIT 24.5 % (36.0-47.0); HEMOGLOBIN 8.3 g/dL (12.0-16.0); LYMPHOCYTES # (AUTO) 1.1 X10^3/uL (1.3-2.9); LYMPHOCYTES % (AUTO) 7.4 % (21.0-51.0); MEAN CORPUSCULAR HEMOGLOBIN 29.8 pg (27.0-34.0); MEAN CORPUSCULAR VOLUME 87.6 fL (80.0-100.0); MEAN PLATELET VOLUME 9.1 fL (7.4-11.0); MONOCYTES # (AUTO) 0.6 x10^3/uL (0.3-0.8); MONOCYTES % (AUTO) 3.8 % (0.0-13.0); NEUTROPHILS # (AUTO) 13.8 x10^3/uL (2.2-4.8); NEUTROPHILS % (AUTO) 88.5 % (42.0-75.0); PLATELET COUNT 379 X10^3/uL (150.0-450.0); RED CELL DISTRIBUTION WIDTH 13.8 % (11.6-16.5); WHITE BLOOD COUNT 15.6 X10^3/uL (3.6-10.0)
[2022-11-13 05:27] LABS: ALBUMIN 2.8 g/dL (3.4-5.0); CALCIUM 8.6 mg/dL (8.5-10.1); CARBON DIOXIDE 22.5 mmol/L (21-32); COR CA(FOR HYPOALB) 9.6 mg/dL (8.5-10.1); CREATININE 1.5 mg/dL (0.55-1.02); POTASSIUM 4.2 mmol/L (3.5-5.1); TOTAL PROTEIN 5.6 g/dL (6.4-8.2)
--- NOTE | 2022-11-13 08:00 | RAD ---
HISTORYPneumonia, shortness of breathSTUDYChest AP [id number]/01/2023FINDINGSHear t is upper limits normal in size. No congestive heart failure is noted. Lungs are mildly hyperinflated but free of acute infiltrates. No pleural effusions or pneumothoraces identified. Bony thorax is unremarkable.IMPRESSIONNo significant abnormality identifiedElectronically signed by: GULSHAN NESBITT (November 13, 2022 07:59:10)
[2022-11-13] MEDS: PULMICORT NEB TX 0.5 MG NEB SCH (08:56)
[2022-11-13] MEDS ORDERED: TOPROL XL PO ONE (09:10)
[2022-11-13] MEDS: SOLU-Medrol 40 MG VIAL IVP SCH (09:14)
[2022-11-13] MEDS: ROBITUSSIN DM PO SCH (09:14)
[2022-11-13] MEDS: ASPIRIN EC 81 MG PO SCH (09:15)
[2022-11-13] MEDS: SINGULAIR TAB 10 MG PO SCH (09:15)
[2022-11-13] MEDS: SYNTHROID 50 mcg TAB PO SCH (09:15)
[2022-11-13] MEDS: TOPROL XL PO SCH (09:16)
[2022-11-13] MEDS: FLONASE NASAL SPRAY ENOSTRIL SCH (09:17)
[2022-11-13] MEDS: ZESTORETIC 20/25 MG PO SCH (09:17)
[2022-11-13] MEDS: PriLOSEC PO SCH (09:18)
[2022-11-13] MEDS: NORVASC TAB 5 MG PO SCH (09:25)
[2022-11-13 14:14] VITALS: BP 184/81
== END 2022-11-13 12:20 | disposition home or self-care (01) | DRG 194 ==
LOC: ICU
PROVIDERS: ADMIT Internal Medicine; ATTEND Internal Medicine
DX: I10 Essential (primary) hypertension; K21.9 Gastro-esophageal reflux disease without esophagitis; B34.8 Other viral infections of unspecified site; R06.02 Shortness of breath; B96.3 Hemophilus influenzae [H. influenzae] as the cause of diseases classified elsewhere; N17.8 Other acute kidney failure; B95.3 Streptococcus pneumoniae as the cause of diseases classified elsewhere; E86.0 Dehydration; Z20.822 Contact with and (suspected) exposure to COVID-19; D64.89 Other specified anemias; J18.0 Bronchopneumonia, unspecified organism